=== PATIENT | male | born 1950 | race Caucasian/White ===

== ENCOUNTER 2020-11-07 15:40 | Emergency (ER) | payer MEDICARE, MEDICAID ==
--- NOTE | 2020-11-07 16:18 | EDM.PDOC ---
ED HPI GENERAL MEDICAL PROBLEM - General Chief Complaint: Upper Extremity Injury/Pain Stated Complaint: BROKEN RIGHT RING FINGER Time Seen by Provider: 11/07/20 16:10 Source of Information: Reports: Patient, Alf Records, Other (caregiver) - History of Present Illness INITIAL COMMENTS - FREE TEXT/NARRATIVE: noted to have swelling and pain in the right 4th digit . No ? history of trauma or fall Brought in by care consultant States pt had hygiene done in am and was not noted at the time to have any pain in the hand Then this afternoon was checked by staff and noted to have bruising on the 4th finger, deformity and pain , aslo was noted to have swelling of the back of the right hand No fall was noted by staff at night or during the day Staff unsure of how pt got the injury Onset: Today Onset Date: 11/07/20 Duration: Hour(s): Location: Reports: Upper Extremity, Right Quality: Reports: Ache, Dull Severity: Moderate Improves with: Reports: None Worsens with: Reports: None, Movement Context: Reports: Other (nknown) Associated Symptoms: Reports: No Other Symptoms Treatments [employer]ER: Reports: Acetaminophen - Related Data Allergies Allergy/AdvReac Type Severity Reaction Status Date / Time No Known Allergies Allergy Verified 11/07/20 17:10 Home Meds: Home Meds Calcium Carbonate/Vitamin D3 [Calcium 500 + Vit D Caplet] 1 tab PO DAILY 10/21/16 [History] Colloidal Oatmeal [Eucerin Eczema Relief] 1 applic .XX BID 10/21/16 [History] Folic Acid 1 mg PO DAILY 10/21/16 [History] Melatonin 1 tab PO BEDTIME 10/21/16 [History] Mirtazapine 30 mg PO BEDTIME 10/21/16 [History] Multivits w-Fe,Other Min/Lut [Theratrum Complete] 1 tab PO DAILY 10/21/16 [History] traZODone 50 mg PO BEDTIME 10/21/16 [History] Ibuprofen [Motrin] 600 mg PO DAILY 11/07/20 [History] Past Medical History HEENT History: Reports: Cataract Other HEENT History: ABNORMAL AUDITORY PERCEPTION, MYOPIA Cardiovascular History: Reports: Hypertension Other Gastrointestinal History: illeostomy rectal prolapse hx of megacolon Other Genitourinary History: URINE INCONTINENCE Other Musculoskeletal History: disc problem Neurological History: Reports: Seizure Psychiatric History: Reports: Other (See Below) Other Psychiatric History: ORGANIC MOOD D/O, INSOMNIA, IMPULSE CONTROL D/O Other Endocrine/Metabolic History: HYPONAT, HYPERKALEMIA Hematologic History: Reports: Anemia Other Dermatologic History: ACNE - Past Surgical History Other GI Surgeries/Procedures: ON COLOSTOMY BAG, VENTRAL HERNIA REPAIR Other Musculoskeletal Surgeries/Procedures:: LEFT BUNION SURGERY Social & Family History - Family History Family Medical History: Unobtainable - Caffeine Use Caffeine Use: Reports: None Review of Systems - Review of Systems Review Of Systems: Unable To Obtain (pt is non verbal) Reason Not Obtained: pt is non verbal ED EXAM, GENERAL - Physical Exam Exam: See Below Exam Limited By: Language Barrier (non verbal) General Appearance: Alert, WD/WN, No Apparent Distress Eye Exam: Bilateral Eye: EOMI Ears: Normal External Exam Throat/Mouth: Normal Oropharynx Head: Atraumatic, Normocephalic Neck: Supple, Non-Tender Respiratory/Chest: No Respiratory Distress, Lungs Clear Extremities: Joint Swelling, Limited Range of Motion, Other (right 4th digit with deformity in the proximal phalangeal joint , swelling extends from this joint tothe dorsum of the hand , also ecchmosis noted in the area , sensation is s intact . Limited ROM noted due to pain) Neurological: Alert Psychiatric: Normal Affect Course - Vital Signs Last Recorded V/S: Last Vital Signs Temp 35.9 C L 11/07/20 15:45 Pulse 70 11/07/20 15:45 Resp 20 11/07/20 15:45 BP 152/88 H 11/07/20 15:45 Pulse Ox 100 11/07/20 15:45 - Orders/Labs/Meds Orders: Active Orders 24 hr Category Date Time Status Hand Comp Min 3V Rt [CR] Stat Exams 11/07/20 16:16 Taken Meds: Medications Discontinued Medications Generic Name Dose Route Start Last Admin Trade Name Freq PRN Reason Stop Dose Admin Hydrocodone Bitart/Acetaminophen 1 tab 11/07/20 17:17 11/07/20 17:22 [place] 325-5 Mg PO 11/07/20 17:18 1 tab ONETIME ONE Administration - Re-Assessments/Exams Free Text/Narrative Re-Assessment/Exam: 11/07/20 18:12 Xray done shows burst fracture of the 4th phalangeal proximal joint Tubbed gauze placed on finger for stabilization , then wrist splint applied Departure - Departure Time of Disposition: 17:25 Disposition: Home, Self-Care 01 Condition: Good Clinical Impression: Fracture of proximal phalanx of digit of right hand, Pain in finger of right hand, Deformity of finger of right hand Clinical Impression: (Ruled Out): Fracture of base of fourth metacarpal bone of right hand - Discharge Information *PRESCRIPTION DRUG MONITORING PROGRAM REVIEWED*: Not Applicable *COPY OF PRESCRIPTION DRUG MONITORING REPORT IN PATIENT SKYLER: Not Applicable Referrals: Leodan Ruiz MD [Primary Care Provider] - Forms: ED Department Discharge Additional Instructions: 1) keep hand in splint till seen by Ortho 2) Referral to orthopedic surgeon in [place] recommended call [facility] Orthopedic Hand surgeon to get appointment on sunday: [phone] 3) Continue with Tylenol 100mg 3 times a day for pain 4) Keep arm elevated as often as possible Sepsis Event Note (ED) - Focused Exam Vital Signs: Vital Signs Temp Pulse Resp BP Pulse Ox 11/07/20 15:45 35.9 C L 70 20 152/88 H 100 - My Orders Last 24 Hours: My Active Orders 11/07/20 16:16 Hand Comp Min 3V Rt [CR] Stat - Assessment/Plan Last 24 Hours: My Active Orders 11/07/20 16:16 Hand Comp Min 3V Rt [CR] Stat
[2020-11-07] MEDS ORDERED: Acetaminophen/HYDROcodone 325-5 MG Tab PO ONE (17:17)
[2020-11-07 19:39] VITALS: BP 165/90; PULSE 67
== END 2020-11-07 18:34 | disposition home or self-care (01) ==
LOC: FB.ED 15:40
DX: S62.614A Displaced fracture of proximal phalanx of right ring finger, initial encounter for closed fracture (principal); M20.001 Unspecified deformity of right finger(s); I10 Essential (primary) hypertension; Z79.899 Other long term (current) drug therapy; X58.XXXA Exposure to other specified factors, initial encounter
CPT/HCPCS: 73130; 99283; A9270

== ENCOUNTER 2021-02-03 19:48 | Emergency (ER) | payer MEDICARE, MEDICAID ==
--- NOTE | 2021-02-03 21:35 | EDM.PDOC ---
ED HPI GENERAL MEDICAL PROBLEM - General Chief Complaint: Gastrointestinal Problem Stated Complaint: POSSIBLE SWOLLOWED SCREWS Time Seen by Provider: 02/03/21 20:00 Source of Information: Reports: Patient, Provider History Limitations: Reports: No Limitations - History of Present Illness INITIAL COMMENTS - FREE TEXT/NARRATIVE: c/o possible ingestion of f.b. from shelter, ambulates, feeds self renovation being done, pt picked up a nail and screw which were found in mouth no c/o pain, no change in behavior, not observed to swallow, staff member here and wanted to make sure he had not swallowed a nail or screw pt has a h/o of putting objects in his mouth pt cognitively challenged, does answer with one words with very limited comprehension, makes eye contact pt ate ham for supper and drank water and milk - Related Data Allergies Allergy/AdvReac Type Severity Reaction Status Date / Time No Known Allergies Allergy Verified 11/07/20 17:10 Home Meds: Home Meds Calcium Carbonate/Vitamin D3 [Calcium 500 + Vit D Caplet] 1 tab PO DAILY 10/21/16 [History] Colloidal Oatmeal [Eucerin Eczema Relief] 1 applic TOP BID 10/21/16 [History] Folic Acid 1 mg PO DAILY 10/21/16 [History] Melatonin 1 tab PO BEDTIME 10/21/16 [History] Mirtazapine 30 mg PO BEDTIME 10/21/16 [History] Multivits w-Fe,Other Min/Lut [Theratrum Complete] 1 tab PO DAILY 10/21/16 [History] traZODone 50 mg PO BEDTIME 10/21/16 [History] Ibuprofen [Motrin] 600 mg PO DAILY 11/07/20 [History] Past Medical History HEENT History: Reports: Cataract Other HEENT History: ABNORMAL AUDITORY PERCEPTION, MYOPIA Cardiovascular History: Reports: Hypertension Other Gastrointestinal History: illeostomy rectal prolapse hx of megacolon Other Genitourinary History: URINE INCONTINENCE Other Musculoskeletal History: disc problem Neurological History: Reports: Seizure Psychiatric History: Reports: Other (See Below) Other Psychiatric History: ORGANIC MOOD D/O, INSOMNIA, IMPULSE CONTROL D/O Other Endocrine/Metabolic History: HYPONAT, HYPERKALEMIA Hematologic History: Reports: Anemia Other Dermatologic History: ACNE - Past Surgical History Other GI Surgeries/Procedures: ON COLOSTOMY BAG, VENTRAL HERNIA REPAIR Other Musculoskeletal Surgeries/Procedures:: LEFT BUNION SURGERY Social & Family History - Family History Family Medical History: Unobtainable - Caffeine Use Caffeine Use: Reports: None ED ROS GENERAL - Review of Systems Review Of Systems: See Below Constitutional: Reports: No Symptoms HEENT: Reports: No Symptoms Respiratory: Reports: No Symptoms Cardiovascular: Reports: No Symptoms Endocrine: Reports: No Symptoms GI/Abdominal: Reports: No Symptoms : Reports: No Symptoms Musculoskeletal: Reports: No Symptoms Skin: Reports: No Symptoms Neurological: Reports: No Symptoms Psychiatric: Reports: No Symptoms Hematologic/Lymphatic: Reports: No Symptoms Immunologic: Reports: No Symptoms ED EXAM, GI/ABD - Physical Exam Exam: See Below Exam Limited By: No Limitations General Appearance: Alert, WD/WN, No Apparent Distress GI/Abdominal Exam: Other (quite soft and NT, pt has ostomy bag in RLQ with soft brown stool) Neurological: Alert Psychiatric: Normal Affect, Normal Mood Skin Exam: Warm, Dry, Intact, Normal Color, No Rash Lymphatic: No Adenopathy Course - Orders/Labs/Meds Orders: Active Orders 24 hr Category Date Time Status Abdomen 2V AP Flat Upright [CR] Stat Exams 02/03/21 21:07 Ordered - Re-Assessments/Exams Free Text/Narrative Re-Assessment/Exam: 02/03/21 21:40 XR of abd is neg on prelim ED read Departure - Departure Time of Disposition: 21:30 Disposition: Home, Self-Care 01 Condition: Good Clinical Impression: Pica in adults - Discharge Information *PRESCRIPTION DRUG MONITORING PROGRAM REVIEWED*: Not Applicable *COPY OF PRESCRIPTION DRUG MONITORING REPORT IN PATIENT SKYLER: Not Applicable Referrals: Leodan Ruiz MD [Primary Care Provider] - Additional Instructions: No opaque foreign bodies are appreciated in the stomach. Continue usual medications and usual care. - My Orders Last 24 Hours: My Active Orders 02/03/21 21:07 Abdomen 2V AP Flat Upright [CR] Stat - Assessment/Plan Last 24 Hours: My Active Orders 02/03/21 21:07 Abdomen 2V AP Flat Upright [CR] Stat
[2021-02-03 23:14] VITALS: BP 138/91; PULSE 62
--- NOTE | 2021-02-04 10:57 | CR ---
INDICATION: Possible foreign body ingestion - long screws. ABDOMEN, TWO-VIEW: Three images of the abdomen in upright AP and lateral views revealed no evidence of radiopaque foreign bodies. For the most part, the pattern of gas and feces is nonspecific with 1 small air- fluid level in the level in the area of the cecum of questionable significance. No organomegaly or mass lesions were identified. 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 No evidence of free air was seen. IMPRESSION: 1. No acute abdominal abnormality identified - no radiopaque foreign body, especially metallic, was identified. 2. Severe dextroconcave rotoscoliosis thoracolumbar spine appearing significantly more prominent than on the previous examination. 3. Degenerative changes - hypertrophic - and degenerative disk disease L5-S1. MTDD
== END 2021-02-03 21:45 | disposition home or self-care (01) ==
LOC: FB.ED 19:48
DX: F50.89 Other specified eating disorder (principal); I10 Essential (primary) hypertension; Z79.899 Other long term (current) drug therapy
CPT/HCPCS: 74019; 99282; 99283-25

== ENCOUNTER 2021-12-28 12:12 | Inpatient (IN) | payer MEDICARE, MEDICAID ==
[2021-12-28] MEDS: Sodium Chloride 0.9% 1,000 ML IV SCH ×2 (13:26→20:44)
[2021-12-28] MEDS ORDERED: Ondansetron 4 MG/2 ML SDV IVPUSH PRN (14:23)
[2021-12-28] MEDS ORDERED: Acetaminophen 325 MG Tab PO PRN (14:25)
[2021-12-28] MEDS: Mirtazapine 30 MG Tab PO SCH (20:12)
[2021-12-28] MEDS: Melatonin 3 MG Tab PO SCH (20:12)
[2021-12-28] MEDS: traZODone 50 MG Tab PO SCH (20:13)
[2021-12-28] MEDS ORDERED: COLLOIDAL OATMEAL TOP SCH (21:00)
[2021-12-29] MEDS: Sodium Chloride 0.9% 1,000 ML IV SCH ×3 (04:34→20:23)
[2021-12-29] MEDS: Ferrous Sulfate 325 MG Tab PO SCH (08:43)
[2021-12-29] MEDS: Folic Acid 1 MG Tab PO SCH (08:43)
[2021-12-29] MEDS: Melatonin 3 MG Tab PO SCH (20:06)
[2021-12-29] MEDS: Mirtazapine 30 MG Tab PO SCH (20:07)
[2021-12-29] MEDS: traZODone 50 MG Tab PO SCH (20:07)
[2021-12-30] MEDS: Sodium Chloride 0.9% 1,000 ML IV SCH (04:08)
[2021-12-30 05:30] VITALS: BP 140/87; PULSE 76
[2021-12-30] MEDS: Ferrous Sulfate 325 MG Tab PO SCH (08:59)
[2021-12-30] MEDS: Folic Acid 1 MG Tab PO SCH (08:59)
[2021-12-30] MEDS ORDERED: Acetaminophen 500 MG Tab PO ONE (09:13)
== END 2021-12-30 09:30 | disposition home or self-care (01) | DRG 683 ==
LOC: FB.MS 12:47
PROVIDERS: ADMIT Family Medicine; ATTEND Family Medicine
DX: N17.9 Acute kidney failure, unspecified (principal); F72 Severe intellectual disabilities; E87.1 Hypo-osmolality and hyponatremia; R32 Unspecified urinary incontinence; F63.9 Impulse disorder, unspecified; E87.5 Hyperkalemia; I10 Essential (primary) hypertension; G40.909 Epilepsy, unspecified, not intractable, without status epilepticus; D64.9 Anemia, unspecified; E86.0 Dehydration; K52.9 Noninfective gastroenteritis and colitis, unspecified; H90.5 Unspecified sensorineural hearing loss; Z93.3 Colostomy status; Z98.890 Other specified postprocedural states; Z79.899 Other long term (current) drug therapy
CPT/HCPCS: 36415; 80048; 82040; 85025; A9270-GY; J7030

== ENCOUNTER 2022-05-12 11:54 | Emergency (ER) | payer MEDICARE, MEDICAID ==
[2022-05-12 12:12] VITALS: BP 162/88; PULSE 58
[2022-05-12] MEDS: Sodium Chloride 0.9% 1,000 ML IV SCH (12:29)
== END 2022-05-12 14:22 | disposition home or self-care (01) ==
LOC: FB.ED 11:54
DX: E87.1 Hypo-osmolality and hyponatremia (principal); Z79.899 Other long term (current) drug therapy
CPT/HCPCS: 84295; 84300; 85027; 96360; 96361; 99283-25; J7030

== ENCOUNTER 2022-07-11 19:31 | Emergency (ER) | payer MEDICARE, MEDICAID ==
[2022-07-12 08:15] VITALS: BP 108/53; PULSE 63
== END 2022-07-11 20:31 | disposition home or self-care (01) ==
LOC: FB.ED 19:31
DX: K94.00 Colostomy complication, unspecified (principal); Z79.899 Other long term (current) drug therapy
CPT/HCPCS: 99282

== ENCOUNTER 2022-08-13 19:53 | Observation (INO) | payer MEDICARE, MEDICAID ==
[2022-08-13 21:14] LABS: ESTIMATED GFR 65 mL/min (>60)
[2022-08-13] MEDS ORDERED: Pantoprazole 40 MG Vial IVPUSH ONE (21:22)
[2022-08-13] MEDS ORDERED: [UNRECOGNIZED DRUG - OTHER] TOP PRN (21:50)
[2022-08-13] MEDS ORDERED: Sodium Chloride 0.9% 1,000 ML IV SCH (22:00)
[2022-08-14 00:16] VITALS: BP 141/82; PULSE 52
[2022-08-14] MEDS ORDERED: Pantoprazole 40 MG Vial IVPUSH SCH (06:00)
[2022-08-14] MEDS ORDERED: Sucralfate 1 GM Tab PO SCH (07:30)
[2022-08-14] MEDS ORDERED: Non-Formulary Medication 1 Each (Folic Acid [Folic Acid] 1 MG Tablet) PO SCH (09:00)
[2022-08-14] MEDS ORDERED: Non-Formulary Medication 1 Each (Losartan [Cozaar] 25 MG Tablet) PO SCH (09:00)
[2022-08-14] MEDS ORDERED: Non-Formulary Medication 1 Each (Mirtazapine [Mirtazapine] 30 MG Tablet) PO SCH (21:00)
[2022-08-14] MEDS ORDERED: Non-Formulary Medication 1 Each (Melatonin [Melatonin] 5 MG Tablet) PO SCH (21:00)
== END 2022-08-14 16:40 | disposition home or self-care (01) ==
LOC: FB.ED 19:53 → FB.MS 21:33
PROVIDERS: ADMIT Student in an Organized Health Care Education/Training Program; ATTEND Family Medicine
DX: K92.2 Gastrointestinal hemorrhage, unspecified (principal); I10 Essential (primary) hypertension; F79 Unspecified intellectual disabilities; R56.9 Unspecified convulsions; F63.9 Impulse disorder, unspecified; Z79.899 Other long term (current) drug therapy; Z98.890 Other specified postprocedural states; Z86.16 Personal history of COVID-19
CPT/HCPCS: 36415; 80053; 82270; 85014; 85018; 85025; 96374; 99217; 99220; 99284; 99285-25; A9270-GY; C9113; G0378; J7030

== ENCOUNTER 2023-03-24 07:38 | Inpatient (IN) | payer MEDICARE, MEDICAID ==
[2023-03-24 08:16] LABS: BASOPHILS PERCENT AUTO 0.4 % (0.3-3.8); EOSINOPHILS ABSOLUTE AUTO 0.2 x10-3/uL (0.0-0.6); EOSINOPHILS PERCENT AUTO 4.5 % (0.1-6.8); HEMATOCRIT 32.5 % (38.3-50.1); HEMOGLOBIN 10.8 g/dL (12.9-17.7); LYMPHOCYTES ABSOLUTE AUTO 0.8 x10-3/uL (0.5-4.5); MEAN CORPUSCULAR HGB CONC 33.3 g/dL (28.7-35.3); MEAN CORPUSCULAR VOLUME 90.3 fL (80.8-98.7); MEAN PLATELET VOLUME 7.4 fL (6.7-11.0); MONOCYTES ABSOLUTE AUTO 0.3 x10-3/uL (0.0-1.2); MONOCYTES PERCENT AUTO 7.7 % (5.5-15.2); NEUTROPHILS ABSOLUTE AUTO 3.2 x10-3/uL (1.7-6.9); NEUTROPHILS PERCENT AUTO 70.4 % (40.3-71.8); PLATELET COUNT,PLT 215 x10(3)uL (117-477); RED CELL DISTRIBUTION WIDTH 14.3 % (12.4-15.0); WHITE BLOOD CELL COUNT,WBC 4.5 x10-3/uL (3.2-10.1)
[2023-03-24 08:23] LABS: BLOOD UREA NITROGEN,BUN 31 mg/dL (7-18); BUN/CREATININE RATIO 28.2 (9-20); CALCIUM 9.1 mg/dL (8.6-10.2); CARBON DIOXIDE,CO2 27 mmol/L (21-32); CHLORIDE,CL 92 mmol/L (100-110); CREATININE 1.1 mg/dL (0.70-1.30); EST CRCL DRUG DOSING (CG) 53.58 mL/min; ESTIMATED GFR 72 mL/min (>60); GLUCOSE RANDOM 87 mg/dL (80-116); POTASSIUM,K 4.4 mmol/L (3.5-5.3); SODIUM,NA 122 mmol/L (135-145)
[2023-03-24 08:29] LABS: A/G RATIO 0.9; ALANINE AMINOTRANSFERASE,ALT 30 U/L (12-36); ALBUMIN 3.4 g/dL (3.2-4.6); ALKALINE PHOSPHATASE 112 IU/L (56-112); ASPARTATE AMNIOTRANSFERASE,AST 30 IU/L (5-25); BILIRUBIN TOTAL 0.4 mg/dL (0.1-1.3); PROTEIN TOTAL,TP 7.3 g/dL (6.0-8.0)
[2023-03-24 08:43] LABS: BILIRUBIN,URINE NEGATIVE (NEGATIVE); GLUCOSE,URINE NORMAL (NORMAL); KETONES,URINE NEGATIVE (NEGATIVE); LEUKOCYTE ESTERASE,URINE NEGATIVE (NEGATIVE); NITRITE,URINE NEGATIVE (NEGATIVE); OCCULT BLOOD,URINE NEGATIVE (NEGATIVE); PROTEIN,URINE NEGATIVE (NEGATIVE); UROBILINOGEN,URINE NORMAL (NEGATIVE)
[2023-03-24 08:47] LABS: APPEARANCE,URINE CLEAR (CLEAR); COLOR,URINE YELLOW (YELLOW); RBC,URINE 0-5 (0-5); SQUAMOUS EPITHELIAL CELLS,UR RARE (NS,R,O); WBC,URINE 0-5 (0-5)
[2023-03-24] MEDS: Enoxaparin 40 MG/0.4 ML Syringe SUBCUT SCH (10:34)
[2023-03-24] MEDS: Calcium Carbonate 500 MG Tablet PO SCH (17:54)
[2023-03-24] MEDS: Ibuprofen 600 MG Tab PO SCH (17:55)
[2023-03-24] MEDS: Losartan 50 MG Tab PO SCH (21:16)
[2023-03-24] MEDS: Melatonin 3 MG Tab PO SCH (21:16)
[2023-03-24] MEDS: Mirtazapine 30 MG Tab PO SCH (21:16)
[2023-03-24] MEDS: traZODone 50 MG Tab PO SCH (21:16)
[2023-03-25 07:27] LABS: BLOOD UREA NITROGEN,BUN 30 mg/dL (7-18); BUN/CREATININE RATIO 27.3 (9-20); CALCIUM 8.9 mg/dL (8.6-10.2); CARBON DIOXIDE,CO2 28 mmol/L (21-32); CHLORIDE,CL 96 mmol/L (100-110); CREATININE 1.1 mg/dL (0.70-1.30); EST CRCL DRUG DOSING (CG) 48.57 mL/min; ESTIMATED GFR 72 mL/min (>60); GLUCOSE RANDOM 92 mg/dL (80-116); POTASSIUM,K 4.8 mmol/L (3.5-5.3); SODIUM,NA 128 mmol/L (135-145)
[2023-03-25] MEDS: Folic Acid 1 MG Tab PO SCH (08:00)
[2023-03-25] MEDS: Ferrous Sulfate 325 MG Tab PO SCH (08:00)
[2023-03-25] MEDS: Losartan 50 MG Tab PO SCH ×2 (08:01→20:54)
[2023-03-25] MEDS ORDERED: Sodium Chloride 1 GM Tab PO SCH (09:00)
[2023-03-25] MEDS: Enoxaparin 40 MG/0.4 ML Syringe SUBCUT SCH (10:13)
[2023-03-25] MEDS: Glycopyrrolate 1 MG Tab PO SCH (10:13)
[2023-03-25] MEDS: Ibuprofen 600 MG Tab PO SCH (18:11)
[2023-03-25] MEDS: Calcium Carbonate 500 MG Tablet PO SCH (18:12)
[2023-03-25] MEDS: Melatonin 3 MG Tab PO SCH (20:54)
[2023-03-25] MEDS: traZODone 50 MG Tab PO SCH (20:54)
[2023-03-25] MEDS: Mirtazapine 30 MG Tab PO SCH (20:54)
[2023-03-26 07:03] LABS: BLOOD UREA NITROGEN,BUN 32 mg/dL (7-18); BUN/CREATININE RATIO 24.6 (9-20); CALCIUM 8.8 mg/dL (8.6-10.2); CARBON DIOXIDE,CO2 24 mmol/L (21-32); CHLORIDE,CL 96 mmol/L (100-110); CREATININE 1.3 mg/dL (0.70-1.30); ESTIMATED GFR 59 mL/min (>60); GLUCOSE RANDOM 92 mg/dL (80-116); POTASSIUM,K 4.9 mmol/L (3.5-5.3); SODIUM,NA 127 mmol/L (135-145)
[2023-03-26] MEDS: Non-Formulary Medication 1 Each (Lanolin/Mineral Oil [Eucerin Original Lotion] 250 ML Loti TP SCH ×2 (08:34→08:35)
[2023-03-26] MEDS: Enoxaparin 40 MG/0.4 ML Syringe SUBCUT SCH (08:54)
[2023-03-26] MEDS: Folic Acid 1 MG Tab PO SCH (08:54)
[2023-03-26] MEDS: Ferrous Sulfate 325 MG Tab PO SCH (08:54)
[2023-03-26] MEDS: Losartan 50 MG Tab PO SCH (08:54)
[2023-03-26] MEDS: Glycopyrrolate 1 MG Tab PO SCH (08:54)
[2023-03-26 08:55] VITALS: BP 105/60
[2023-03-26 09:00] VITALS: PULSE 81
[2023-03-26] MEDS ORDERED: Sodium Chloride 1 GM Tab PO SCH (09:00)
== END 2023-03-26 13:10 | disposition home health service (06) | DRG 641 ==
LOC: FB.ED 07:38 → FB.MS 09:24
PROVIDERS: ADMIT Student in an Organized Health Care Education/Training Program; ATTEND Family Medicine
DX: E87.1 Hypo-osmolality and hyponatremia (principal); R29.6 Repeated falls; F63.9 Impulse disorder, unspecified; R56.9 Unspecified convulsions; D64.9 Anemia, unspecified; H90.3 Sensorineural hearing loss, bilateral; R39.81 Functional urinary incontinence; I10 Essential (primary) hypertension; G47.00 Insomnia, unspecified; F39 Unspecified mood [affective] disorder; M19.90 Unspecified osteoarthritis, unspecified site; Z98.890 Other specified postprocedural states; Z79.899 Other long term (current) drug therapy; Z93.2 Ileostomy status; Z93.3 Colostomy status
CPT/HCPCS: 36415; 80048; 80053; 81001; 85025; 97161-GP; 99284; A9270-GY; J1650

== ENCOUNTER 2023-03-31 11:04 | Emergency (ER) | payer MEDICARE, MEDICAID ==
[2023-03-31 12:40] LABS: BLOOD UREA NITROGEN,BUN 36 mg/dL (7-18); BUN/CREATININE RATIO 32.7 (9-20); CALCIUM 9.1 mg/dL (8.6-10.2); CARBON DIOXIDE,CO2 26 mmol/L (21-32); CHLORIDE,CL 99 mmol/L (100-110); CREATININE 1.1 mg/dL (0.70-1.30); ESTIMATED GFR 72 mL/min (>60); GLUCOSE RANDOM 93 mg/dL (80-116); POTASSIUM,K 4.6 mmol/L (3.5-5.3); SODIUM,NA 132 mmol/L (135-145)
[2023-03-31 12:43] LABS: BASOPHILS PERCENT AUTO 0.3 % (0.3-3.8); EOSINOPHILS ABSOLUTE AUTO 0.2 x10-3/uL (0.0-0.6); EOSINOPHILS PERCENT AUTO 3.5 % (0.1-6.8); HEMATOCRIT 29.5 % (38.3-50.1); LYMPHOCYTES ABSOLUTE AUTO 0.9 x10-3/uL (0.5-4.5); LYMPHOCYTES PERCENT AUTO 17.1 % (15.8-45.3); MEAN CORPUSCULAR HEMOGLOBIN 30.7 pg (27.0-33.3); MEAN CORPUSCULAR VOLUME 90.3 fL (80.8-98.7); MEAN PLATELET VOLUME 7.6 fL (6.7-11.0); MONOCYTES ABSOLUTE AUTO 0.5 x10-3/uL (0.0-1.2); MONOCYTES PERCENT AUTO 8.3 % (5.5-15.2); NEUTROPHILS ABSOLUTE AUTO 3.9 x10-3/uL (1.7-6.9); NEUTROPHILS PERCENT AUTO 70.8 % (40.3-71.8); PLATELET COUNT,PLT 239 x10(3)uL (117-477); RED BLOOD CELL COUNT 3.27 x10(6)uL (3.90-5.90); RED CELL DISTRIBUTION WIDTH 13.9 % (12.4-15.0); WHITE BLOOD CELL COUNT,WBC 5.5 x10-3/uL (3.2-10.1)
[2023-03-31 12:46] LABS: A/G RATIO 0.9; ALANINE AMINOTRANSFERASE,ALT 30 U/L (12-36); ALBUMIN 3.3 g/dL (3.2-4.6); ALKALINE PHOSPHATASE 105 IU/L (56-112); ASPARTATE AMNIOTRANSFERASE,AST 30 IU/L (5-25); BILIRUBIN TOTAL 0.3 mg/dL (0.1-1.3); MAGNESIUM 1.7 mg/dL (1.8-2.5)
[2023-03-31 14:11] LABS: BILIRUBIN,URINE NEGATIVE (NEGATIVE); GLUCOSE,URINE NORMAL (NORMAL); KETONES,URINE NEGATIVE (NEGATIVE); LEUKOCYTE ESTERASE,URINE NEGATIVE (NEGATIVE); NITRITE,URINE NEGATIVE (NEGATIVE); OCCULT BLOOD,URINE NEGATIVE (NEGATIVE); PROTEIN,URINE NEGATIVE (NEGATIVE); UROBILINOGEN,URINE NORMAL (NEGATIVE)
[2023-03-31 14:15] LABS: APPEARANCE,URINE CLEAR (CLEAR); COLOR,URINE YELLOW (YELLOW)
[2023-03-31 14:16] LABS: BACTERIA,URINE OCCASIONAL (NS); SQUAMOUS EPITHELIAL CELLS,UR OCCASIONAL (NS,R,O); WBC,URINE 0-5 (0-5)
[2023-03-31 15:09] VITALS: BP 151/85; PULSE 75
== END 2023-03-31 15:07 ==
LOC: FB.ED 11:04
DX: K92.2 Gastrointestinal hemorrhage, unspecified (principal); I10 Essential (primary) hypertension; Z79.899 Other long term (current) drug therapy; Z86.16 Personal history of COVID-19
CPT/HCPCS: 36415; 80053; 81001; 83735; 85025; 86140; 99285

== ENCOUNTER 2023-09-22 15:26 | Emergency (ER) | payer MEDICARE, MEDICAID ==
[2023-09-22] MEDS ORDERED: Sodium Chloride 0.9% 10 ML Syringe FLUSH PRN (15:42)
[2023-09-22 16:10] LABS: HEMATOCRIT 34.1 % (38.3-50.1); HEMOGLOBIN 11.1 g/dL (12.9-17.7); MEAN CORPUSCULAR HEMOGLOBIN 30.3 pg (27.0-33.3); MEAN CORPUSCULAR HGB CONC 32.7 g/dL (28.7-35.3); MEAN CORPUSCULAR VOLUME 92.6 fL (80.8-98.7); MEAN PLATELET VOLUME 8.1 fL (6.7-11.0); PLATELET COUNT,PLT 212 x10(3)uL (117-477); RED BLOOD CELL COUNT 3.68 x10(6)uL (3.90-5.90); RED CELL DISTRIBUTION WIDTH 13.9 % (12.4-15.0); WHITE BLOOD CELL COUNT,WBC 13.3 x10-3/uL (3.2-10.1)
[2023-09-22 16:23] LABS: LACTIC ACID 0.4 mmol/L (0.4-2.0)
[2023-09-22 16:24] LABS: A/G RATIO 0.8; ALANINE AMINOTRANSFERASE,ALT 34 U/L (12-36); ALBUMIN 3.4 g/dL (3.2-4.6); ALKALINE PHOSPHATASE 113 IU/L (56-112); ASPARTATE AMNIOTRANSFERASE,AST 30 IU/L (5-25); BILIRUBIN TOTAL 0.4 mg/dL (0.1-1.3); CARBON DIOXIDE,CO2 26 mmol/L (21-32); CHLORIDE,CL 101 mmol/L (100-110); CREATININE 1.2 mg/dL (0.70-1.30); ESTIMATED GFR 64 mL/min (>60); GLUCOSE RANDOM 177 mg/dL (80-116); POTASSIUM,K 4.1 mmol/L (3.5-5.3); PROTEIN TOTAL,TP 7.8 g/dL (6.0-8.0); SODIUM,NA 135 mmol/L (135-145)
[2023-09-22 16:26] LABS: LYMPHOCYTES PERCENT MAN 4 % (13-37); MONOCYTES PERCENT MAN 4 % (4-12); SEG NEUTROPHILS PERCENT MAN 92 % (46-82)
[2023-09-22] MEDS ORDERED: Levofloxacin 500 MG Tab PO ONE (17:12)
[2023-09-22 19:37] VITALS: BP 128/77; PULSE 109
[2023-09-24 07:44] LABS: BLOOD UREA NITROGEN,BUN 38 mg/dL (7-18); BUN/CREATININE RATIO 31.7 (9-20)
== END 2023-09-22 17:40 | disposition home or self-care (01) ==
LOC: FB.ED 15:26
DX: T17.920A Food in respiratory tract, part unspecified causing asphyxiation, initial encounter (principal); I10 Essential (primary) hypertension; Z79.899 Other long term (current) drug therapy; Z86.16 Personal history of COVID-19
CPT/HCPCS: 36415; 71045; 71046; 80053; 83605; 85025; 86140; 87040; 99213; 99283; A9270-GY

== ENCOUNTER 2024-06-06 10:01 | Emergency (ER) | payer MEDICARE, MEDICAID ==
[2024-06-06] MEDS ORDERED: Sodium Chloride 0.9% 10 ML Syringe FLUSH PRN (10:33)
[2024-06-06 10:57] LABS: HEMATOCRIT 36.4 % (38.3-50.1); HEMOGLOBIN 12.1 g/dL (12.9-17.7); MEAN CORPUSCULAR HEMOGLOBIN 30.3 pg (27.0-33.3); MEAN CORPUSCULAR HGB CONC 33.2 g/dL (28.7-35.3); MEAN CORPUSCULAR VOLUME 91.2 fL (80.8-98.7); MEAN PLATELET VOLUME 8.3 fL (6.7-11.0); PLATELET COUNT,PLT 217 x10(3)uL (117-477); RED BLOOD CELL COUNT 3.99 x10(6)uL (3.90-5.90)
[2024-06-06] MEDS: Lidocaine 2% HCl 6 ML Jel ONE (11:07)
[2024-06-06 11:16] LABS: A/G RATIO 0.8; ALANINE AMINOTRANSFERASE,ALT 23 U/L (12-36); ALBUMIN 3.4 g/dL (3.2-4.6); ALKALINE PHOSPHATASE 96 IU/L (56-112); ASPARTATE AMNIOTRANSFERASE,AST 29 IU/L (5-25); BILIRUBIN TOTAL 0.8 mg/dL (0.1-1.3); BLOOD UREA NITROGEN,BUN 41 mg/dL (7-18); BUN/CREATININE RATIO 21.6 (9-20); CALCIUM 9.7 mg/dL (8.6-10.2); CARBON DIOXIDE,CO2 24 mmol/L (21-32); CHLORIDE,CL 96 mmol/L (100-110); CREATININE 1.9 mg/dL (0.70-1.30); ESTIMATED GFR 37 mL/min (>60); GLUCOSE RANDOM 177 mg/dL (80-116); POTASSIUM,K 5.1 mmol/L (3.5-5.3); PROTEIN TOTAL,TP 7.8 g/dL (6.0-8.0); SODIUM,NA 132 mmol/L (135-145)
[2024-06-06 11:27] LABS: BAND PERCENT MAN 12 % (0-6); LYMPHOCYTES PERCENT MAN 14 % (13-37); MONOCYTES PERCENT MAN 6 % (4-12); SEG NEUTROPHILS PERCENT MAN 68 % (46-82)
[2024-06-06] MEDS: Iopamidol 755 Mg/ML 100 ML Bottle IV SCH (11:53)
[2024-06-06 11:54] LABS: BILIRUBIN,URINE NEGATIVE (NEGATIVE); GLUCOSE,URINE NORMAL (NORMAL); KETONES,URINE NEGATIVE (NEGATIVE); LEUKOCYTE ESTERASE,URINE NEGATIVE (NEGATIVE); NITRITE,URINE NEGATIVE (NEGATIVE); OCCULT BLOOD,URINE NEGATIVE (NEGATIVE); PROTEIN,URINE NEGATIVE (NEGATIVE); UROBILINOGEN,URINE NORMAL (NEGATIVE)
[2024-06-06] MEDS: Sodium Chloride 0.9% 1,000 ML IV SCH (11:59)
[2024-06-06 12:05] LABS: APPEARANCE,URINE CLEAR (CLEAR); BACTERIA,URINE OCCASIONAL (NS); COLOR,URINE YELLOW (YELLOW); RBC,URINE 0-5 (0-5); SQUAMOUS EPITHELIAL CELLS,UR RARE (NS,R,O); WBC,URINE 0-5 (0-5)
[2024-06-06] MEDS ORDERED: cefTRIAXone 1 GM Vial IV ONE (12:30)
[2024-06-06] MEDS ORDERED: cefTRIAXone 1 GM in Sodium Chloride 0.9% 50 ML IV ONE (12:40)
[2024-06-06 12:41] VITALS: BP 111/80; PULSE 126
[2024-06-06] MEDS: cefTRIAXone 1 GM Vial IVPUSH ONE (12:52)
[2024-06-06] MEDS: VANCOmycin 1.25 GM/250 ML 1.25 GM in Premix Bag 1 BAG IV ONE (12:53)
[2024-06-06] MEDS ORDERED: Lidocaine 2% HCl 6 ML Jel ONE (14:12)
[2024-06-06] MEDS ORDERED: Saccharomyces Boulardii (Probiotic) 250 MG Cap PO SCH (21:00)
== END 2024-06-06 16:15 | disposition other institution (70) ==
LOC: FB.ED 10:01
DX: K56.609 Unspecified intestinal obstruction, unspecified as to partial versus complete obstruction (principal); F72 Severe intellectual disabilities; R33.9 Retention of urine, unspecified; I10 Essential (primary) hypertension; Z79.899 Other long term (current) drug therapy; Z86.16 Personal history of COVID-19
CPT/HCPCS: 36415; 51702; 74177; 80053; 81001; 83605; 85025; 86140; 87040; 96361; 96365; 96366; 96375; 99285; A9270; C1758; J0696; J3372; J7030; Q9967

== ENCOUNTER 2024-06-19 21:04 | Inpatient (IN) | payer MEDICARE, MEDICAID ==
[2024-06-19 22:00] LABS: BASOPHILS PERCENT AUTO 0.3 % (0.3-3.8); EOSINOPHILS PERCENT AUTO 0.1 % (0.1-6.8); HEMATOCRIT 24.7 % (38.3-50.1); HEMOGLOBIN 8.2 g/dL (12.9-17.7); LYMPHOCYTES ABSOLUTE AUTO 1.1 x10-3/uL (0.5-4.5); LYMPHOCYTES PERCENT AUTO 14.6 % (15.8-45.3); MEAN CORPUSCULAR HEMOGLOBIN 30.3 pg (27.0-33.3); MEAN CORPUSCULAR HGB CONC 33.1 g/dL (28.7-35.3); MEAN CORPUSCULAR VOLUME 91.6 fL (80.8-98.7); MEAN PLATELET VOLUME 9.3 fL (6.7-11.0); MONOCYTES ABSOLUTE AUTO 0.4 x10-3/uL (0.0-1.2); MONOCYTES PERCENT AUTO 5.6 % (5.5-15.2); NEUTROPHILS ABSOLUTE AUTO 6.1 x10-3/uL (1.7-6.9); NEUTROPHILS PERCENT AUTO 79.4 % (40.3-71.8); PLATELET COUNT,PLT 406 x10(3)uL (117-477); WHITE BLOOD CELL COUNT,WBC 7.6 x10-3/uL (3.2-10.1)
[2024-06-19 22:04] LABS: BLOOD UREA NITROGEN,BUN 58 mg/dL (7-18); BUN/CREATININE RATIO 20.7 (9-20); CALCIUM 8.1 mg/dL (8.6-10.2); CARBON DIOXIDE,CO2 20 mmol/L (21-32); CHLORIDE,CL 106 mmol/L (100-110); CREATININE 2.8 mg/dL (0.70-1.30); ESTIMATED GFR 23 mL/min (>60); GLUCOSE RANDOM 183 mg/dL (80-116); POTASSIUM,K 5.2 mmol/L (3.5-5.3); SODIUM,NA 137 mmol/L (135-145)
[2024-06-19 22:11] LABS: TROPONIN I 9.9 pg/mL (4.0-60.3)
[2024-06-19 22:15] LABS: C-REACTIVE PROTEIN 6.56 mg/dL (<0.50); LACTIC ACID 2.1 mmol/L (0.4-2.0)
[2024-06-19] MEDS: Sodium Chloride 0.9% 1,000 ML IV SCH (22:18)
[2024-06-19] MEDS ORDERED: Piperacillin/Tazobactam 2.25 GM in Sodium Chloride 0.9% 50 ML IV SCH (23:30)
[2024-06-19] MEDS: Morphine 2 MG/ML SYRINGE IVPUSH PRN (23:40)
[2024-06-19] MEDS: Pantoprazole 40 MG Vial IVPUSH ONE (23:49)
[2024-06-20] MEDS: Piperacillin/Tazobactam 4.5 GM in Sodium Chloride 0.9% 100 ML IV ONE (00:14)
[2024-06-20] MEDS: Sodium Chloride 0.9% 1,000 ML IV SCH (01:06)
[2024-06-20] MEDS: Piperacillin/Tazobactam 4.5 GM in Sodium Chloride 0.9% 100 ML IV SCH ×2 (04:09→11:32)
[2024-06-20 06:37] LABS: BASOPHILS PERCENT AUTO 0.2 % (0.3-3.8); EOSINOPHILS ABSOLUTE AUTO 0.1 x10-3/uL (0.0-0.6); EOSINOPHILS PERCENT AUTO 1.2 % (0.1-6.8); LYMPHOCYTES ABSOLUTE AUTO 1.3 x10-3/uL (0.5-4.5); LYMPHOCYTES PERCENT AUTO 25.6 % (15.8-45.3); MEAN CORPUSCULAR HGB CONC 32.9 g/dL (28.7-35.3); MEAN CORPUSCULAR VOLUME 91.1 fL (80.8-98.7); MONOCYTES ABSOLUTE AUTO 0.4 x10-3/uL (0.0-1.2); MONOCYTES PERCENT AUTO 7.1 % (5.5-15.2); NEUTROPHILS ABSOLUTE AUTO 3.3 x10-3/uL (1.7-6.9); NEUTROPHILS PERCENT AUTO 65.9 % (40.3-71.8); PLATELET COUNT,PLT 319 x10(3)uL (117-477); RED BLOOD CELL COUNT 2.22 x10(6)uL (3.90-5.90); RED CELL DISTRIBUTION WIDTH 14.1 % (12.4-15.0)
[2024-06-20 06:49] LABS: A/G RATIO 0.4; ALANINE AMINOTRANSFERASE,ALT 23 U/L (12-36); ALKALINE PHOSPHATASE 113 IU/L (56-112); ASPARTATE AMNIOTRANSFERASE,AST 19 IU/L (5-25); BILIRUBIN TOTAL 0.4 mg/dL (0.1-1.3); BLOOD UREA NITROGEN,BUN 51 mg/dL (7-18); BUN/CREATININE RATIO 21.3 (9-20); CALCIUM 7.4 mg/dL (8.6-10.2); CARBON DIOXIDE,CO2 18 mmol/L (21-32); CHLORIDE,CL 109 mmol/L (100-110); EST CRCL DRUG DOSING (CG) 22.37 mL/min; ESTIMATED GFR 28 mL/min (>60); GLUCOSE RANDOM 114 mg/dL (80-116); POTASSIUM,K 4.8 mmol/L (3.5-5.3); PROTEIN TOTAL,TP 5.4 g/dL (6.0-8.0); SODIUM,NA 139 mmol/L (135-145)
[2024-06-20 06:51] LABS: LACTIC ACID 0.6 mmol/L (0.4-2.0)
[2024-06-20 06:57] LABS: CREATININE 2.4 mg/dL (0.70-1.30)
[2024-06-20 06:58] LABS: ALBUMIN 1.5 g/dL (3.2-4.6)
[2024-06-20 06:59] LABS: C-REACTIVE PROTEIN 4.8 mg/dL (<0.50)
[2024-06-20 07:00] LABS: HEMOGLOBIN 6.6 g/dL (12.9-17.7)
[2024-06-20 07:02] LABS: HEMATOCRIT 20.2 % (38.3-50.1)
[2024-06-20] MEDS ORDERED: [UNRECOGNIZED DRUG - OTHER] TOP PRN (10:29)
[2024-06-20] MEDS: Sodium Chloride 0.9% 250 ML IV SCH (10:51)
[2024-06-20 11:18] LABS: HEMATOCRIT 20.1 % (38.3-50.1); HEMOGLOBIN 6.6 g/dL (12.9-17.7)
[2024-06-20] MEDS: Pantoprazole 40 MG Vial IVPUSH SCH (11:28)
[2024-06-20] MEDS: fluvoxaMINE 100 MG Tab PO SCH (11:38)
[2024-06-20] MEDS: Simethicone 80 MG Tab.Chew PO SCH (13:54)
[2024-06-20 14:52] LABS: HEMATOCRIT 20.4 % (38.3-50.1); HEMOGLOBIN 6.8 g/dL (12.9-17.7)
[2024-06-20 18:52] LABS: HEMATOCRIT 23.6 % (38.3-50.1); HEMOGLOBIN 7.8 g/dL (12.9-17.7)
[2024-06-20] MEDS ORDERED: LISTERINE SCH (21:00)
[2024-06-20 22:43] LABS: HEMATOCRIT 23.3 % (38.3-50.1); HEMOGLOBIN 7.8 g/dL (12.9-17.7)
[2024-06-20] MEDS: Melatonin 3 MG Tab PO SCH (22:49)
[2024-06-20] MEDS: traZODone 50 MG Tab PO SCH (22:49)
[2024-06-20] MEDS: Mirtazapine 30 MG Tab PO SCH (22:49)
[2024-06-21 06:34] LABS: BASOPHILS PERCENT AUTO 0.4 % (0.3-3.8); EOSINOPHILS ABSOLUTE AUTO 0.1 x10-3/uL (0.0-0.6); HEMATOCRIT 25.3 % (38.3-50.1); HEMOGLOBIN 8.5 g/dL (12.9-17.7); LYMPHOCYTES ABSOLUTE AUTO 1.2 x10-3/uL (0.5-4.5); LYMPHOCYTES PERCENT AUTO 29.3 % (15.8-45.3); MEAN CORPUSCULAR HEMOGLOBIN 30.4 pg (27.0-33.3); MEAN CORPUSCULAR HGB CONC 33.6 g/dL (28.7-35.3); MEAN CORPUSCULAR VOLUME 90.5 fL (80.8-98.7); MEAN PLATELET VOLUME 8.1 fL (6.7-11.0); MONOCYTES ABSOLUTE AUTO 0.3 x10-3/uL (0.0-1.2); MONOCYTES PERCENT AUTO 7.8 % (5.5-15.2); NEUTROPHILS ABSOLUTE AUTO 2.4 x10-3/uL (1.7-6.9); NEUTROPHILS PERCENT AUTO 60.5 % (40.3-71.8); PLATELET COUNT,PLT 360 x10(3)uL (117-477); RED CELL DISTRIBUTION WIDTH 14.3 % (12.4-15.0)
[2024-06-21 06:45] LABS: A/G RATIO 0.4; ALANINE AMINOTRANSFERASE,ALT 17 U/L (12-36); ALKALINE PHOSPHATASE 126 IU/L (56-112); ASPARTATE AMNIOTRANSFERASE,AST 13 IU/L (5-25); BILIRUBIN TOTAL 0.6 mg/dL (0.1-1.3); BLOOD UREA NITROGEN,BUN 38 mg/dL (7-18); BUN/CREATININE RATIO 17.3 (9-20); CALCIUM 7.4 mg/dL (8.6-10.2); CARBON DIOXIDE,CO2 20 mmol/L (21-32); CHLORIDE,CL 115 mmol/L (100-110); ESTIMATED GFR 31 mL/min (>60); GLUCOSE RANDOM 68 mg/dL (80-116); POTASSIUM,K 4.9 mmol/L (3.5-5.3); PROTEIN TOTAL,TP 5.3 g/dL (6.0-8.0); SODIUM,NA 143 mmol/L (135-145)
[2024-06-21 07:11] LABS: ALBUMIN 1.4 g/dL (3.2-4.6); CREATININE 2.2 mg/dL (0.70-1.30)
[2024-06-21] MEDS: Multivitamins with Iron/Calcium/Folic Acid/Minerals Tab PO SCH (08:31)
[2024-06-21] MEDS ORDERED: [UNRECOGNIZED DRUG - OTHER] PO SCH (09:00)
[2024-06-22] MEDS: Sodium Chloride 0.9% 10 ML Syringe FLUSH PRN (02:44)
[2024-06-22 06:32] LABS: BASOPHILS PERCENT AUTO 0.4 % (0.3-3.8); EOSINOPHILS ABSOLUTE AUTO 0.1 x10-3/uL (0.0-0.6); EOSINOPHILS PERCENT AUTO 1.6 % (0.1-6.8); HEMATOCRIT 24.5 % (38.3-50.1); HEMOGLOBIN 8.3 g/dL (12.9-17.7); LYMPHOCYTES ABSOLUTE AUTO 1.5 x10-3/uL (0.5-4.5); LYMPHOCYTES PERCENT AUTO 29.1 % (15.8-45.3); MEAN CORPUSCULAR HEMOGLOBIN 30.5 pg (27.0-33.3); MEAN CORPUSCULAR HGB CONC 33.9 g/dL (28.7-35.3); MEAN CORPUSCULAR VOLUME 90.1 fL (80.8-98.7); MEAN PLATELET VOLUME 8.2 fL (6.7-11.0); MONOCYTES ABSOLUTE AUTO 0.4 x10-3/uL (0.0-1.2); MONOCYTES PERCENT AUTO 7.8 % (5.5-15.2); NEUTROPHILS ABSOLUTE AUTO 3.1 x10-3/uL (1.7-6.9); NEUTROPHILS PERCENT AUTO 61.1 % (40.3-71.8); PLATELET COUNT,PLT 399 x10(3)uL (117-477); RED BLOOD CELL COUNT 2.72 x10(6)uL (3.90-5.90); RED CELL DISTRIBUTION WIDTH 14.5 % (12.4-15.0)
[2024-06-22] MEDS: Pantoprazole 40 MG Tab.CR PO SCH (06:37)
[2024-06-22] MEDS ORDERED: Amoxicillin/Clavulanate K 875-125 MG Tab PO SCH (08:30)
[2024-06-22] MEDS: metroNIDAZOLE 500 MG Tab PO SCH (11:06)
[2024-06-22] MEDS: Amoxicillin/Clavulanate K 500-125 MG Tab PO SCH (11:06)
[2024-06-22] MEDS: Acetaminophen 325 MG Tab PO PRN (16:04)
[2024-06-23] MEDS: Pantoprazole 40 MG Tab.CR PO SCH (06:42)
[2024-06-23 06:54] LABS: BASOPHILS PERCENT AUTO 0.3 % (0.3-3.8); EOSINOPHILS ABSOLUTE AUTO 0.1 x10-3/uL (0.0-0.6); EOSINOPHILS PERCENT AUTO 0.8 % (0.1-6.8); HEMATOCRIT 24.9 % (38.3-50.1); HEMOGLOBIN 8.3 g/dL (12.9-17.7); LYMPHOCYTES ABSOLUTE AUTO 1.7 x10-3/uL (0.5-4.5); MEAN CORPUSCULAR HEMOGLOBIN 30.3 pg (27.0-33.3); MEAN CORPUSCULAR HGB CONC 33.4 g/dL (28.7-35.3); MEAN CORPUSCULAR VOLUME 90.9 fL (80.8-98.7); MEAN PLATELET VOLUME 7.9 fL (6.7-11.0); MONOCYTES ABSOLUTE AUTO 0.4 x10-3/uL (0.0-1.2); MONOCYTES PERCENT AUTO 6.2 % (5.5-15.2); NEUTROPHILS ABSOLUTE AUTO 4.8 x10-3/uL (1.7-6.9); NEUTROPHILS PERCENT AUTO 68.7 % (40.3-71.8); PLATELET COUNT,PLT 413 x10(3)uL (117-477); RED BLOOD CELL COUNT 2.74 x10(6)uL (3.90-5.90); RED CELL DISTRIBUTION WIDTH 14.7 % (12.4-15.0); WHITE BLOOD CELL COUNT,WBC 6.9 x10-3/uL (3.2-10.1)
[2024-06-23 14:59] VITALS: BP 104/65; PULSE 86
== END 2024-06-23 14:40 | disposition home health service (06) | DRG 178 ==
LOC: FB.ED 21:04 → FB.MS 23:24
PROVIDERS: ADMIT Family Medicine; ATTEND Family Medicine
PROC: 30233N1 Transfusion of Nonautologous Red Blood Cells into Peripheral Vein, Percutaneous Approach (ICD-10-PCS; principal; 2024-06-20)
DX: J18.9 Pneumonia, unspecified organism (principal); J69.0 Pneumonitis due to inhalation of food and vomit; F03.B11 Unspecified dementia, moderate, with agitation; N17.9 Acute kidney failure, unspecified; K56.7 Ileus, unspecified; K94.09 Other complications of colostomy; K92.2 Gastrointestinal hemorrhage, unspecified; F79 Unspecified intellectual disabilities; F03.90 Unspecified dementia, unspecified severity, without behavioral disturbance, psychotic disturbance, mood disturbance, and anxiety; I10 Essential (primary) hypertension; M19.90 Unspecified osteoarthritis, unspecified site; D50.0 Iron deficiency anemia secondary to blood loss (chronic); I48.0 Paroxysmal atrial fibrillation; E03.9 Hypothyroidism, unspecified; Z88.8 Allergy status to other drugs, medicaments and biological substances; Z79.899 Other long term (current) drug therapy; Z87.81 Personal history of (healed) traumatic fracture; Z86.16 Personal history of COVID-19; Z98.890 Other specified postprocedural states
CPT/HCPCS: 36415 ×2; 71045; 74176; 80048; 83605; 83880; 84484; 85025; 86140; 96360; 99285; J7030; 36430; 80053; 82272; 85014; 85018; 86850; 86900; 86901; 86920; 86922; 87040; 94150; 99223; 99233; 99238; A9270-GY; J2270; J2470; J2543; J3490; J7050; P9016

== ENCOUNTER 2024-06-25 09:01 | Emergency (ER) | payer MEDICARE, MEDICAID ==
[2024-06-25 10:08] LABS: BASOPHILS PERCENT AUTO 0.2 % (0.3-3.8); BLOOD UREA NITROGEN,BUN 30 mg/dL (7-18); BUN/CREATININE RATIO 18.8 (9-20); CALCIUM 8.2 mg/dL (8.6-10.2); CARBON DIOXIDE,CO2 16 mmol/L (21-32); CHLORIDE,CL 106 mmol/L (100-110); CREATININE 1.6 mg/dL (0.70-1.30); EOSINOPHILS ABSOLUTE AUTO 0.1 x10-3/uL (0.0-0.6); EOSINOPHILS PERCENT AUTO 0.7 % (0.1-6.8); EST CRCL DRUG DOSING (CG) 33.47 mL/min; ESTIMATED GFR 46 mL/min (>60); GLUCOSE RANDOM 84 mg/dL (80-116); HEMATOCRIT 28.4 % (38.3-50.1); HEMOGLOBIN 9.2 g/dL (12.9-17.7); LYMPHOCYTES PERCENT AUTO 19.4 % (15.8-45.3); MEAN CORPUSCULAR HEMOGLOBIN 29.8 pg (27.0-33.3); MEAN CORPUSCULAR HGB CONC 32.5 g/dL (28.7-35.3); MEAN CORPUSCULAR VOLUME 91.7 fL (80.8-98.7); MEAN PLATELET VOLUME 7.3 fL (6.7-11.0); MONOCYTES ABSOLUTE AUTO 0.6 x10-3/uL (0.0-1.2); MONOCYTES PERCENT AUTO 5.7 % (5.5-15.2); NEUTROPHILS ABSOLUTE AUTO 7.6 x10-3/uL (1.7-6.9); PLATELET COUNT,PLT 466 x10(3)uL (117-477); POTASSIUM,K 5.6 mmol/L (3.5-5.3); RED CELL DISTRIBUTION WIDTH 14.7 % (12.4-15.0); SODIUM,NA 133 mmol/L (135-145); WHITE BLOOD CELL COUNT,WBC 10.3 x10-3/uL (3.2-10.1)
[2024-06-25 10:14] LABS: A/G RATIO 0.4; ALANINE AMINOTRANSFERASE,ALT 17 U/L (12-36); ALBUMIN 1.8 g/dL (3.2-4.6); ALKALINE PHOSPHATASE 137 IU/L (56-112); ASPARTATE AMNIOTRANSFERASE,AST 18 IU/L (5-25); BILIRUBIN TOTAL 0.3 mg/dL (0.1-1.3); PROTEIN TOTAL,TP 6.4 g/dL (6.0-8.0)
[2024-06-25] MEDS: Sodium Chloride 0.9% 1,000 ML IV ONE (10:45)
[2024-06-25 13:38] VITALS: BP 127/70; PULSE 70
== END 2024-06-25 11:55 ==
LOC: FB.ED 09:01
DX: E86.0 Dehydration (principal); E88.09 Other disorders of plasma-protein metabolism, not elsewhere classified; N17.9 Acute kidney failure, unspecified; I13.0 Hypertensive heart and chronic kidney disease with heart failure and stage 1 through stage 4 chronic kidney disease, or unspecified chronic kidney disease; I50.9 Heart failure, unspecified; N18.9 Chronic kidney disease, unspecified; Z86.16 Personal history of COVID-19; Z79.899 Other long term (current) drug therapy
CPT/HCPCS: 36415; 71045; 74019; 80053; 83605; 85025; 86140; 96360; 99285-25; J7030

== ENCOUNTER 2024-09-30 13:53 | Inpatient (IN) | payer MEDICARE, MEDICAID ==
[2024-09-30 14:34] LABS: HEMATOCRIT 29.9 % (38.3-50.1); RED CELL DISTRIBUTION WIDTH 16.3 % (12.4-15.0)
[2024-09-30 14:35] LABS: HEMOGLOBIN 9.9 g/dL (12.9-17.7); MEAN CORPUSCULAR HEMOGLOBIN 29.6 pg (27.0-33.3); MEAN CORPUSCULAR VOLUME 89.8 fL (80.8-98.7); RED BLOOD CELL COUNT 3.33 x10(6)uL (3.90-5.90); WHITE BLOOD CELL COUNT,WBC 17.7 x10-3/uL (3.2-10.1)
[2024-09-30] MEDS: Sodium Chloride 0.9% 1,000 ML IV SCH ×3 (14:39→19:28)
[2024-09-30 14:48] LABS: A/G RATIO 0.5; ALANINE AMINOTRANSFERASE,ALT 48 U/L (12-36); ALBUMIN 2.5 g/dL (3.2-4.6); ALKALINE PHOSPHATASE 141 IU/L (56-112); ASPARTATE AMNIOTRANSFERASE,AST 34 IU/L (5-25); BILIRUBIN TOTAL 0.2 mg/dL (0.1-1.3); BUN/CREATININE RATIO 26.2 (9-20); CALCIUM 10.1 mg/dL (8.6-10.2); CARBON DIOXIDE,CO2 17 mmol/L (21-32); CHLORIDE,CL 107 mmol/L (100-110); ESTIMATED GFR 14 mL/min (>60); GLUCOSE RANDOM 181 mg/dL (80-116); POTASSIUM,K 5.7 mmol/L (3.5-5.3); PROTEIN TOTAL,TP 7.4 g/dL (6.0-8.0); SODIUM,NA 137 mmol/L (135-145)
[2024-09-30 14:56] LABS: BLOOD UREA NITROGEN,BUN 110 mg/dL (7-18); CREATININE 4.2 mg/dL (0.70-1.30)
[2024-09-30 17:08] LABS: BLOOD UREA NITROGEN,BUN 103 mg/dL (7-18); BUN/CREATININE RATIO 27.1 (9-20); CALCIUM 9.4 mg/dL (8.6-10.2); CARBON DIOXIDE,CO2 17 mmol/L (21-32); CHLORIDE,CL 109 mmol/L (100-110); ESTIMATED GFR 16 mL/min (>60); GLUCOSE RANDOM 157 mg/dL (80-116); POTASSIUM,K 5.8 mmol/L (3.5-5.3); SODIUM,NA 137 mmol/L (135-145)
[2024-09-30 17:09] LABS: CREATININE 3.8 mg/dL (0.70-1.30)
[2024-09-30] MEDS ORDERED: Ondansetron 4 MG/2 ML SDV IV PRN (17:21)
[2024-09-30] MEDS ORDERED: Albuterol 0.083% 2.5 MG/3 ML Neb Soln NEB PRN (17:21)
[2024-09-30] MEDS ORDERED: Glucagon,Human Recombinant 1 MG Vial IM PRN (17:21)
[2024-09-30] MEDS ORDERED: Sennosides/Docusate Sodium 50-8.6 MG Tab PO PRN (17:21)
[2024-09-30] MEDS ORDERED: 50% Dextrose in Water 50 ML Syringe IVPUSH PRN (17:21)
[2024-09-30] MEDS ORDERED: [UNRECOGNIZED DRUG - OTHER] TOP PRN (17:33)
[2024-09-30] MEDS: cefTRIAXone 1 GM Vial IVPUSH SCH (17:58)
[2024-09-30] MEDS: Azithromycin 500 MG in Sodium Chloride 0.9% 250 ML IV SCH (17:59)
[2024-09-30] MEDS ORDERED: Insulin Lispro 100 Unit/ML 3 ML KwikPen SUBCUT ONE (19:18)
[2024-09-30] MEDS: 50% Dextrose in Water 50 ML Syringe IVPUSH STA (19:28)
[2024-09-30] MEDS: Insulin Lispro 100 Unit/ML 3 ML KwikPen SUBCUT STA (19:34)
[2024-09-30] MEDS: Sodium Bicarbonate 8.4% 50 MEQ/50 ML Syringe IVPUSH ONE (19:41)
[2024-09-30] MEDS: Sodium Bicarbonate 8.4% 50 MEQ/50 ML Syringe ONE (19:47)
[2024-09-30] MEDS: Calcium Gluconate 10% 1 GM/10 ML SDV IVPUSH ONE (19:50)
[2024-09-30] MEDS: Sodium Chloride 1 GM Tab PO SCH (20:10)
[2024-09-30] MEDS: Acetaminophen 325 MG Tab PO PRN (20:10)
[2024-09-30] MEDS: Simethicone 80 MG Tab.Chew PO SCH (20:10)
[2024-09-30] MEDS: Pantoprazole 40 MG Tab.CR PO SCH (20:10)
[2024-09-30] MEDS: Melatonin 3 MG Tab PO SCH (20:10)
[2024-09-30] MEDS: Mineral Oil/White Petrolatum Crm 113 GM Jar TOP SCH (20:10)
[2024-09-30] MEDS: Mirtazapine 15 MG Tab PO SCH (20:10)
[2024-09-30] MEDS: Albuterol/Ipratropium 3.0-0.5 MG/3 ML Neb Soln NEB SCH (20:22)
[2024-09-30] MEDS ORDERED: LISTERINE SCH (21:00)
[2024-10-01 02:09] LABS: BILIRUBIN,URINE NEGATIVE (NEGATIVE); GLUCOSE,URINE NORMAL (NORMAL); KETONES,URINE NEGATIVE (NEGATIVE); LEUKOCYTE ESTERASE,URINE LARGE (NEGATIVE); NITRITE,URINE POSITIVE (NEGATIVE); OCCULT BLOOD,URINE MODERATE (NEGATIVE); PROTEIN,URINE 100 mg/dL (NEGATIVE); UROBILINOGEN,URINE NORMAL (NEGATIVE)
[2024-10-01 02:31] LABS: APPEARANCE,URINE CLOUDY (CLEAR); COLOR,URINE YELLOW (YELLOW)
[2024-10-01 02:32] LABS: BACTERIA,URINE MODERATE (NS); RBC,URINE 0-5 (0-5); SQUAMOUS EPITHELIAL CELLS,UR OCCASIONAL (NS,R,O); WBC,URINE 75-100 (0-5)
[2024-10-01] MEDS: Levothyroxine 50 MCG Tab PO SCH (05:02)
[2024-10-01 06:39] LABS: HEMATOCRIT 26.7 % (38.3-50.1); HEMOGLOBIN 8.8 g/dL (12.9-17.7); MEAN CORPUSCULAR HEMOGLOBIN 29.4 pg (27.0-33.3); MEAN PLATELET VOLUME 7.6 fL (6.7-11.0); PLATELET COUNT,PLT 187 x10(3)uL (117-477); RED CELL DISTRIBUTION WIDTH 16.3 % (12.4-15.0); WHITE BLOOD CELL COUNT,WBC 18.3 x10-3/uL (3.2-10.1)
[2024-10-01 06:45] LABS: A/G RATIO 0.6; ALANINE AMINOTRANSFERASE,ALT 43 U/L (12-36); ALBUMIN 2.1 g/dL (3.2-4.6); ALKALINE PHOSPHATASE 122 IU/L (56-112); ASPARTATE AMNIOTRANSFERASE,AST 28 IU/L (5-25); BILIRUBIN TOTAL 0.4 mg/dL (0.1-1.3); BLOOD UREA NITROGEN,BUN 91 mg/dL (7-18); CALCIUM 9.1 mg/dL (8.6-10.2); CARBON DIOXIDE,CO2 16 mmol/L (21-32); CHLORIDE,CL 111 mmol/L (100-110); EST CRCL DRUG DOSING (CG) 15.44 mL/min; ESTIMATED GFR 18 mL/min (>60); GLUCOSE RANDOM 139 mg/dL (80-116); POTASSIUM,K 4.6 mmol/L (3.5-5.3); PROTEIN TOTAL,TP 5.8 g/dL (6.0-8.0); SODIUM,NA 139 mmol/L (135-145)
[2024-10-01 06:56] LABS: CREATININE 3.5 mg/dL (0.70-1.30)
[2024-10-01 07:04] LABS: ANISOCYTOSIS FEW; LYMPHOCYTES PERCENT MAN 5 % (13-37); MONOCYTES PERCENT MAN 6 % (4-12); SEG NEUTROPHILS PERCENT MAN 89 % (46-82)
[2024-10-01] MEDS ORDERED: [UNRECOGNIZED DRUG - OTHER] PO SCH (09:00)
[2024-10-01] MEDS: fluvoxaMINE 100 MG Tab PO SCH (09:41)
[2024-10-01] MEDS: Calcium Carbonate 500 MG Tablet PO SCH (09:41)
[2024-10-01] MEDS: Multivitamins with Iron/Calcium/Folic Acid/Minerals Tab PO SCH (09:42)
[2024-10-01] MEDS: Simethicone 80 MG Tab.Chew PO SCH (09:42)
[2024-10-01] MEDS: Lactated Ringers 1,000 ML IV SCH (09:50)
[2024-10-01] MEDS: Pantoprazole 40 MG Tab.CR PO SCH (20:12)
[2024-10-02 06:34] LABS: BASOPHILS PERCENT AUTO 0.1 % (0.3-3.8); EOSINOPHILS PERCENT AUTO 0.2 % (0.1-6.8); HEMATOCRIT 26.2 % (38.3-50.1); HEMOGLOBIN 8.6 g/dL (12.9-17.7); LYMPHOCYTES ABSOLUTE AUTO 0.8 x10-3/uL (0.5-4.5); MEAN CORPUSCULAR HEMOGLOBIN 29.4 pg (27.0-33.3); MEAN CORPUSCULAR VOLUME 89.2 fL (80.8-98.7); MEAN PLATELET VOLUME 7.8 fL (6.7-11.0); MONOCYTES PERCENT AUTO 6.9 % (5.5-15.2); NEUTROPHILS PERCENT AUTO 86.8 % (40.3-71.8); PLATELET COUNT,PLT 172 x10(3)uL (117-477); RED CELL DISTRIBUTION WIDTH 16.1 % (12.4-15.0); WHITE BLOOD CELL COUNT,WBC 13.8 x10-3/uL (3.2-10.1)
[2024-10-02 06:41] LABS: RED BLOOD CELL COUNT 2.93 x10(6)uL (3.90-5.90)
[2024-10-02 06:43] LABS: A/G RATIO 0.5; ALANINE AMINOTRANSFERASE,ALT 50 U/L (12-36); ALBUMIN 1.8 g/dL (3.2-4.6); ALKALINE PHOSPHATASE 154 IU/L (56-112); ASPARTATE AMNIOTRANSFERASE,AST 37 IU/L (5-25); BILIRUBIN TOTAL 0.2 mg/dL (0.1-1.3); BLOOD UREA NITROGEN,BUN 73 mg/dL (7-18); BUN/CREATININE RATIO 22.8 (9-20); CALCIUM 8.8 mg/dL (8.6-10.2); CARBON DIOXIDE,CO2 18 mmol/L (21-32); EST CRCL DRUG DOSING (CG) 17.15 mL/min; ESTIMATED GFR 20 mL/min (>60); GLUCOSE RANDOM 177 mg/dL (80-116); POTASSIUM,K 4.8 mmol/L (3.5-5.3); PROTEIN TOTAL,TP 5.7 g/dL (6.0-8.0); SODIUM,NA 145 mmol/L (135-145)
[2024-10-02 06:45] LABS: CHLORIDE,CL 116 mmol/L (100-110); CREATININE 3.2 mg/dL (0.70-1.30)
[2024-10-02] MEDS: Azithromycin 250 MG Tab PO SCH (09:59)
[2024-10-02] MEDS: Ampicillin/Sulbactam Na 3 GM in Sodium Chloride 0.9% 100 ML IV SCH (10:07)
[2024-10-03 06:53] LABS: HEMATOCRIT 26.7 % (38.3-50.1); HEMOGLOBIN 8.8 g/dL (12.9-17.7); MEAN CORPUSCULAR HEMOGLOBIN 29.5 pg (27.0-33.3); MEAN CORPUSCULAR VOLUME 89.5 fL (80.8-98.7); MEAN PLATELET VOLUME 8.3 fL (6.7-11.0); PLATELET COUNT,PLT 192 x10(3)uL (117-477); RED BLOOD CELL COUNT 2.98 x10(6)uL (3.90-5.90); RED CELL DISTRIBUTION WIDTH 16.3 % (12.4-15.0); WHITE BLOOD CELL COUNT,WBC 14.1 x10-3/uL (3.2-10.1)
[2024-10-03 07:09] LABS: A/G RATIO 0.5; ALANINE AMINOTRANSFERASE,ALT 53 U/L (12-36); ALBUMIN 1.9 g/dL (3.2-4.6); ALKALINE PHOSPHATASE 176 IU/L (56-112); ASPARTATE AMNIOTRANSFERASE,AST 30 IU/L (5-25); BILIRUBIN TOTAL 0.3 mg/dL (0.1-1.3); BLOOD UREA NITROGEN,BUN 59 mg/dL (7-18); BUN/CREATININE RATIO 19.7 (9-20); CALCIUM 9.1 mg/dL (8.6-10.2); CARBON DIOXIDE,CO2 21 mmol/L (21-32); ESTIMATED GFR 21 mL/min (>60); GLUCOSE RANDOM 138 mg/dL (80-116); POTASSIUM,K 4.7 mmol/L (3.5-5.3); SODIUM,NA 149 mmol/L (135-145)
[2024-10-03 07:10] LABS: CHLORIDE,CL 120 mmol/L (100-110)
[2024-10-03 07:15] LABS: EOSINOPHILS PERCENT MAN 1 % (0-5); LYMPHOCYTES PERCENT MAN 5 % (13-37); MONOCYTES PERCENT MAN 4 % (4-12); SEG NEUTROPHILS PERCENT MAN 90 % (46-82)
[2024-10-03 07:16] LABS: ANISOCYTOSIS FEW
[2024-10-03] MEDS: Lactated Ringers 1,000 ML IV SCH (16:38)
[2024-10-03 16:44] LABS: LACTIC ACID 2.3 mmol/L (0.4-2.0)
[2024-10-03] MEDS: Diltiazem 25 MG/5 ML SDV IVPUSH STA (17:58)
[2024-10-04 06:25] LABS: BASOPHILS PERCENT AUTO 0.2 % (0.3-3.8); EOSINOPHILS PERCENT AUTO 0.5 % (0.1-6.8); HEMATOCRIT 24.5 % (38.3-50.1); HEMOGLOBIN 8.1 g/dL (12.9-17.7); LYMPHOCYTES ABSOLUTE AUTO 0.9 x10-3/uL (0.5-4.5); LYMPHOCYTES PERCENT AUTO 8.7 % (15.8-45.3); MEAN CORPUSCULAR HEMOGLOBIN 29.8 pg (27.0-33.3); MEAN CORPUSCULAR HGB CONC 33.3 g/dL (28.7-35.3); MEAN CORPUSCULAR VOLUME 89.4 fL (80.8-98.7); MEAN PLATELET VOLUME 8.6 fL (6.7-11.0); MONOCYTES ABSOLUTE AUTO 0.6 x10-3/uL (0.0-1.2); MONOCYTES PERCENT AUTO 5.7 % (5.5-15.2); NEUTROPHILS ABSOLUTE AUTO 8.5 x10-3/uL (1.7-6.9); NEUTROPHILS PERCENT AUTO 84.9 % (40.3-71.8); PLATELET COUNT,PLT 195 x10(3)uL (117-477); RED BLOOD CELL COUNT 2.74 x10(6)uL (3.90-5.90)
[2024-10-04 06:34] LABS: A/G RATIO 0.5; ALANINE AMINOTRANSFERASE,ALT 81 U/L (12-36); ALBUMIN 1.9 g/dL (3.2-4.6); ALKALINE PHOSPHATASE 236 IU/L (56-112); ASPARTATE AMNIOTRANSFERASE,AST 61 IU/L (5-25); BILIRUBIN TOTAL 0.3 mg/dL (0.1-1.3); BLOOD UREA NITROGEN,BUN 59 mg/dL (7-18); BUN/CREATININE RATIO 20.3 (9-20); CALCIUM 9.1 mg/dL (8.6-10.2); CARBON DIOXIDE,CO2 23 mmol/L (21-32); EST CRCL DRUG DOSING (CG) 20.47 mL/min; ESTIMATED GFR 22 mL/min (>60); GLUCOSE RANDOM 134 mg/dL (80-116); PROTEIN TOTAL,TP 5.9 g/dL (6.0-8.0); SODIUM,NA 152 mmol/L (135-145)
[2024-10-04 06:40] LABS: CHLORIDE,CL 120 mmol/L (100-110)
[2024-10-04 06:41] LABS: CREATININE 2.9 mg/dL (0.70-1.30)
[2024-10-04] MEDS: Dextrose 5% in Water 1,000 ML IV SCH (10:19)
[2024-10-05 07:09] LABS: BASOPHILS PERCENT AUTO 0.1 % (0.3-3.8); EOSINOPHILS ABSOLUTE AUTO 0.2 x10-3/uL (0.0-0.6); HEMATOCRIT 22.9 % (38.3-50.1); HEMOGLOBIN 7.7 g/dL (12.9-17.7); MEAN CORPUSCULAR HGB CONC 33.7 g/dL (28.7-35.3); MEAN CORPUSCULAR VOLUME 89.1 fL (80.8-98.7); MONOCYTES ABSOLUTE AUTO 0.5 x10-3/uL (0.0-1.2); MONOCYTES PERCENT AUTO 5.9 % (5.5-15.2); NEUTROPHILS ABSOLUTE AUTO 6.7 x10-3/uL (1.7-6.9); PLATELET COUNT,PLT 199 x10(3)uL (117-477); RED BLOOD CELL COUNT 2.57 x10(6)uL (3.90-5.90); WHITE BLOOD CELL COUNT,WBC 8.3 x10-3/uL (3.2-10.1)
[2024-10-05 07:18] LABS: A/G RATIO 0.5; ALANINE AMINOTRANSFERASE,ALT 75 U/L (12-36); ALBUMIN 1.8 g/dL (3.2-4.6); ALKALINE PHOSPHATASE 241 IU/L (56-112); ASPARTATE AMNIOTRANSFERASE,AST 45 IU/L (5-25); BILIRUBIN TOTAL 0.2 mg/dL (0.1-1.3); BLOOD UREA NITROGEN,BUN 56 mg/dL (7-18); BUN/CREATININE RATIO 20.7 (9-20); CALCIUM 8.4 mg/dL (8.6-10.2); CARBON DIOXIDE,CO2 20 mmol/L (21-32); CHLORIDE,CL 112 mmol/L (100-110); EST CRCL DRUG DOSING (CG) 21.99 mL/min; ESTIMATED GFR 24 mL/min (>60); GLUCOSE RANDOM 132 mg/dL (80-116); PROTEIN TOTAL,TP 5.8 g/dL (6.0-8.0); SODIUM,NA 142 mmol/L (135-145)
[2024-10-05 07:35] LABS: CREATININE 2.7 mg/dL (0.70-1.30)
[2024-10-05] MEDS: Sodium Chloride 0.45% 1,000 ML IV SCH (10:01)
[2024-10-06 07:06] LABS: BASOPHILS PERCENT AUTO 0.2 % (0.3-3.8); EOSINOPHILS ABSOLUTE AUTO 0.2 x10-3/uL (0.0-0.6); EOSINOPHILS PERCENT AUTO 1.7 % (0.1-6.8); HEMATOCRIT 24.2 % (38.3-50.1); HEMOGLOBIN 8.1 g/dL (12.9-17.7); MEAN CORPUSCULAR HEMOGLOBIN 29.6 pg (27.0-33.3); MEAN CORPUSCULAR HGB CONC 33.4 g/dL (28.7-35.3); MEAN CORPUSCULAR VOLUME 88.9 fL (80.8-98.7); MONOCYTES ABSOLUTE AUTO 0.5 x10-3/uL (0.0-1.2); MONOCYTES PERCENT AUTO 5.6 % (5.5-15.2); NEUTROPHILS ABSOLUTE AUTO 7.5 x10-3/uL (1.7-6.9); NEUTROPHILS PERCENT AUTO 81.5 % (40.3-71.8); PLATELET COUNT,PLT 246 x10(3)uL (117-477); RED BLOOD CELL COUNT 2.72 x10(6)uL (3.90-5.90); RED CELL DISTRIBUTION WIDTH 15.9 % (12.4-15.0); WHITE BLOOD CELL COUNT,WBC 9.2 x10-3/uL (3.2-10.1)
[2024-10-06 07:13] LABS: A/G RATIO 0.5; ALANINE AMINOTRANSFERASE,ALT 72 U/L (12-36); ALBUMIN 1.9 g/dL (3.2-4.6); ALKALINE PHOSPHATASE 234 IU/L (56-112); ASPARTATE AMNIOTRANSFERASE,AST 34 IU/L (5-25); BILIRUBIN TOTAL 0.2 mg/dL (0.1-1.3); BLOOD UREA NITROGEN,BUN 47 mg/dL (7-18); BUN/CREATININE RATIO 18.8 (9-20); CALCIUM 8.4 mg/dL (8.6-10.2); CARBON DIOXIDE,CO2 20 mmol/L (21-32); CHLORIDE,CL 111 mmol/L (100-110); EST CRCL DRUG DOSING (CG) 23.75 mL/min; ESTIMATED GFR 26 mL/min (>60); GLUCOSE RANDOM 105 mg/dL (80-116); POTASSIUM,K 4.1 mmol/L (3.5-5.3); PROTEIN TOTAL,TP 5.7 g/dL (6.0-8.0); SODIUM,NA 141 mmol/L (135-145)
[2024-10-06 07:21] LABS: CREATININE 2.5 mg/dL (0.70-1.30)
[2024-10-06] MEDS: Sodium Chloride 0.9% 10 ML Syringe FLUSH PRN (09:55)
[2024-10-07 06:51] LABS: BASOPHILS PERCENT AUTO 0.4 % (0.3-3.8); EOSINOPHILS ABSOLUTE AUTO 0.2 x10-3/uL (0.0-0.6); EOSINOPHILS PERCENT AUTO 2.2 % (0.1-6.8); HEMOGLOBIN 8.7 g/dL (12.9-17.7); LYMPHOCYTES ABSOLUTE AUTO 1.1 x10-3/uL (0.5-4.5); LYMPHOCYTES PERCENT AUTO 12.8 % (15.8-45.3); MEAN CORPUSCULAR HEMOGLOBIN 29.5 pg (27.0-33.3); MEAN CORPUSCULAR HGB CONC 33.3 g/dL (28.7-35.3); MEAN CORPUSCULAR VOLUME 88.6 fL (80.8-98.7); MEAN PLATELET VOLUME 8.6 fL (6.7-11.0); MONOCYTES ABSOLUTE AUTO 0.6 x10-3/uL (0.0-1.2); MONOCYTES PERCENT AUTO 6.3 % (5.5-15.2); NEUTROPHILS PERCENT AUTO 78.3 % (40.3-71.8); PLATELET COUNT,PLT 299 x10(3)uL (117-477); RED BLOOD CELL COUNT 2.93 x10(6)uL (3.90-5.90); RED CELL DISTRIBUTION WIDTH 15.9 % (12.4-15.0)
[2024-10-07 06:57] LABS: A/G RATIO 0.5; ALANINE AMINOTRANSFERASE,ALT 59 U/L (12-36); ALKALINE PHOSPHATASE 210 IU/L (56-112); ASPARTATE AMNIOTRANSFERASE,AST 28 IU/L (5-25); BILIRUBIN TOTAL 0.2 mg/dL (0.1-1.3); BLOOD UREA NITROGEN,BUN 39 mg/dL (7-18); CALCIUM 8.3 mg/dL (8.6-10.2); CARBON DIOXIDE,CO2 22 mmol/L (21-32); CHLORIDE,CL 112 mmol/L (100-110); EST CRCL DRUG DOSING (CG) 25.81 mL/min; ESTIMATED GFR 29 mL/min (>60); GLUCOSE RANDOM 96 mg/dL (80-116); PROTEIN TOTAL,TP 5.5 g/dL (6.0-8.0); SODIUM,NA 143 mmol/L (135-145)
[2024-10-07 07:02] LABS: ALBUMIN 1.7 g/dL (3.2-4.6); CREATININE 2.3 mg/dL (0.70-1.30)
[2024-10-07 11:34] VITALS: BP 121/82
[2024-10-07 11:40] VITALS: PULSE 90
== END 2024-10-07 12:35 | disposition home or self-care (01) | DRG 177 ==
LOC: FB.ED 13:53 → FB.MS 17:37
PROVIDERS: ADMIT Emergency Medicine; ATTEND Internal Medicine
DX: J18.9 Pneumonia, unspecified organism (principal); J69.0 Pneumonitis due to inhalation of food and vomit; J96.01 Acute respiratory failure with hypoxia; E87.1 Hypo-osmolality and hyponatremia; F72 Severe intellectual disabilities; I13.0 Hypertensive heart and chronic kidney disease with heart failure and stage 1 through stage 4 chronic kidney disease, or unspecified chronic kidney disease; N17.9 Acute kidney failure, unspecified; I48.20 Chronic atrial fibrillation, unspecified; I48.91 Unspecified atrial fibrillation; N39.0 Urinary tract infection, site not specified; Z90.49 Acquired absence of other specified parts of digestive tract; E87.29 Other acidosis; Z79.890 Hormone replacement therapy; E87.0 Hyperosmolality and hypernatremia; I95.9 Hypotension, unspecified; I50.9 Heart failure, unspecified; E03.9 Hypothyroidism, unspecified; M19.90 Unspecified osteoarthritis, unspecified site; N18.9 Chronic kidney disease, unspecified; E86.0 Dehydration; E87.5 Hyperkalemia; D63.1 Anemia in chronic kidney disease; B96.1 Klebsiella pneumoniae [K. pneumoniae] as the cause of diseases classified elsewhere; Z79.899 Other long term (current) drug therapy; Z87.81 Personal history of (healed) traumatic fracture; Z98.890 Other specified postprocedural states; Z86.16 Personal history of COVID-19; Z93.2 Ileostomy status
CPT/HCPCS: 36415; 71045; 74018; 76770; 80048; 80053; 81001; 83605; 84295; 85025; 85027; 87040; 87086; 87088; 87186; 87428-QW; 93005; 94640; 96360; 96361; 99223; 99233; 99238; 99285; 99285-25; A9270-GY; J0295; J0456; J0612; J0696; J1815; J3490; J7030; J7050; J7060; J7120; J7620

== ENCOUNTER 2024-10-14 17:42 | Emergency (ER) | payer MEDICARE, MEDICAID ==
[2024-10-14] MEDS: Sodium Chloride 0.9% 1,000 ML IV SCH (19:38)
[2024-10-14 20:17] LABS: LACTIC ACID 0.4 mmol/L (0.4-2.0)
[2024-10-14] MEDS: Iopamidol 755 Mg/ML 100 ML Bottle IV SCH (20:25)
[2024-10-14 22:06] VITALS: BP 150/83; PULSE 57
== END 2024-10-14 22:06 | disposition home or self-care (01) ==
LOC: FB.ED 17:42
DX: K43.9 Ventral hernia without obstruction or gangrene (principal); N17.9 Acute kidney failure, unspecified; E86.0 Dehydration; I11.0 Hypertensive heart disease with heart failure; I50.9 Heart failure, unspecified; E03.9 Hypothyroidism, unspecified; Z86.16 Personal history of COVID-19; Z79.890 Hormone replacement therapy; Z79.899 Other long term (current) drug therapy
CPT/HCPCS: 36415; 71045; 74019; 74177; 83605; 86140; 87040; 96360; 96361; 99284; J7030; Q9967

== ENCOUNTER 2025-04-01 10:44 | Emergency (ER) | payer MEDICARE, MEDICAID ==
[2025-04-01] MEDS ORDERED: Sodium Chloride 0.9% 10 ML Syringe FLUSH PRN (11:38)
[2025-04-01 11:57] LABS: BASOPHILS PERCENT AUTO 0.2 % (0.3-3.8); EOSINOPHILS ABSOLUTE AUTO 0.1 x10-3/uL (0.0-0.6); HEMOGLOBIN 10.5 g/dL (12.9-17.7); LYMPHOCYTES ABSOLUTE AUTO 1.1 x10-3/uL (0.5-4.5); LYMPHOCYTES PERCENT AUTO 22.4 % (15.8-45.3); MEAN CORPUSCULAR HEMOGLOBIN 29.7 pg (27.0-33.3); MEAN CORPUSCULAR HGB CONC 33.9 g/dL (28.7-35.3); MEAN CORPUSCULAR VOLUME 87.6 fL (80.8-98.7); MEAN PLATELET VOLUME 7.8 fL (6.7-11.0); MONOCYTES ABSOLUTE AUTO 0.3 x10-3/uL (0.0-1.2); NEUTROPHILS ABSOLUTE AUTO 3.3 x10-3/uL (1.7-6.9); NEUTROPHILS PERCENT AUTO 68.4 % (40.3-71.8); PLATELET COUNT,PLT 178 x10(3)uL (117-477); RED BLOOD CELL COUNT 3.54 x10(6)uL (3.90-5.90); RED CELL DISTRIBUTION WIDTH 14.2 % (12.4-15.0); WHITE BLOOD CELL COUNT,WBC 4.9 x10-3/uL (3.2-10.1)
[2025-04-01 12:02] LABS: BLOOD UREA NITROGEN,BUN 42 mg/dL (7-18); BUN/CREATININE RATIO 24.7 (9-20); CARBON DIOXIDE,CO2 30 mmol/L (21-32); CHLORIDE,CL 101 mmol/L (100-110); CREATININE 1.7 mg/dL (0.70-1.30); ESTIMATED GFR 42 mL/min (>60); GLUCOSE RANDOM 79 mg/dL (80-116); POTASSIUM,K 4.6 mmol/L (3.5-5.3); SODIUM,NA 134 mmol/L (135-145)
[2025-04-01 12:03] LABS: C-REACTIVE PROTEIN < 0.50 mg/dL (<0.50); LIPASE 65 U/L (16-77)
[2025-04-01 12:08] LABS: A/G RATIO 0.9; ALANINE AMINOTRANSFERASE,ALT 44 U/L (12-36); ALBUMIN 3.6 g/dL (3.2-4.6); ALKALINE PHOSPHATASE 139 IU/L (56-112); ASPARTATE AMNIOTRANSFERASE,AST 35 IU/L (5-25); BILIRUBIN TOTAL 0.3 mg/dL (0.1-1.3); MAGNESIUM 1.9 mg/dL (1.8-2.5); PROTEIN TOTAL,TP 7.5 g/dL (6.0-8.0)
[2025-04-01] MEDS: Sodium Chloride 0.9% 500 ML IV ONE (12:36)
[2025-04-01] MEDS: Iopamidol 755 Mg/ML 100 ML Bottle IV SCH (12:38)
[2025-04-01 12:45] VITALS: PULSE 54
[2025-04-01 14:35] VITALS: BP 153/71
== END 2025-04-01 14:20 ==
LOC: FB.ED 10:44
DX: K94.10 Enterostomy complication, unspecified (principal); I11.0 Hypertensive heart disease with heart failure; I50.9 Heart failure, unspecified; E03.9 Hypothyroidism, unspecified; Z79.890 Hormone replacement therapy; Z79.899 Other long term (current) drug therapy
CPT/HCPCS: 36415; 74177; 80053; 83605; 83690; 83735; 85025; 86140; 96360; 99285-25; J7040; Q9967